=== PATIENT | male | born 1970 | race Caucasian/White ===

== ENCOUNTER 2019-01-03 07:26 | Emergency (ER) | payer OTHER ==
[2019-01-03 07:29] VITALS: TEMP 98.4; BMI 31.0
[2019-01-03] MEDS ORDERED: KETOROLAC TROMETHAMINE 30 MG/1 ML VIAL IVPUSH ONE (07:57)
[2019-01-03] MEDS ORDERED: KETOROLAC TROMETHAMINE 30 MG/1 ML VIAL ONE (08:00)
[2019-01-03 08:03] LABS: BASO % 0.1 % (0-2.0); EOS % 1.7 % (0-4.5); HEMATOCRIT 46.8 % (35.4-49); HEMOGLOBIN 16.1 GM/dl (11.7-16.9); LYMPH % 9.7 % (8-40); MCH 33.3 pg (25.7-33.7); MCHC 34.3 g/dl (32.0-35.9); MEAN CELL VOLUME 97.1 fl (80-96); MEAN PLT VOLUME 7.7 fl (7.5-11.1); MONO % 4.5 % (3.8-10.2); PLATELET COUNT 281 K/MM3 (134-434); RBC 4.82 M/mm3 (4.00-5.60); WHITE BLOOD COUNT 10.3 K/mm3 (4.0-10.8)
[2019-01-03 08:18] LABS: ALBUMIN 4.2 g/dl (3.4-5.0); ALK PHOS 70 U/L (45-117); ANION GAP 11 MMOL/L (8-16); BILIRUBIN,TOTAL 1.1 mg/dl (0.2-1); BLOOD UREA NITROGEN 15 mg/dl (7-18); CALCIUM 9.1 mg/dl (8.5-10); CHLORIDE 100 mmol/L (98-107); CO2 22 mmol/L (21-32); CREATININE 0.9 mg/dl (0.55-1.3); GLUCOSE,RANDOM 137 mg/dl (74-106); POTASSIUM 3.7 mmol/L (3.5-5.1); SGOT/AST 43 U/L (15-37); SGPT/ALT 57 U/L (13-61); SODIUM 133 mmol/L (136-145); TOT PROT 6.9 g/dl (6.4-8.2)
--- NOTE | 2019-01-03 08:40 | PDOC ---
History of Present Illness - General Chief Complaint: Pain, Acute Stated Complaint: RIGHT ABD PAIN Time Seen by Provider: 01/03/19 07:34 History Source: Patient Exam Limitations: No Limitations - History of Present Illness Initial Comments: 01/03/19 08:35 Healthy 48-year-old male with no significant past medical history presents with relatively acute onset of right lower quadrant/right pelvic pain this morning while driving to work, persistent for about 2 hours and began radiating to the groin and right flank he presents for evaluation. Pain is sharp, tender to 10 at peak, associated with nausea but no vomiting or diarrhea or constipation. Upon arrival here, the patient urinated dark urine and noted almost immediate improvement in his pain, still localized to the right pelvic region. Denies any testicular abnormality or pain, no fevers or chills. No history of kidney stones, denies any injury, no other complaints. No history of hernias or swellings, no rash. Past History - Past Medical History Allergies/Adverse Reactions: Allergies Allergy/AdvReac Type Severity Reaction Status Date / Time No Known Allergies Allergy Verified 01/03/19 07:26 Home Medications: Ambulatory Orders Oxycodone HCl/Acetaminophen [Percocet 5-325 mg Tablet] 1 - 2 tab PO TID PRN #14 tab MDD 6 tabs 01/03/19 Tamsulosin HCl [Flomax] 0.4 mg PO DAILY #7 cap.er.24h 01/03/19 COPD: No - Suicide/Smoking/Psychosocial Hx Smoking History: Former smoker Have you smoked in the past 12 months: Yes Information on smoking cessation initiated: Yes Hx Alcohol Use: Yes (OCASIONAL) Drug/Substance Use Hx: No Review of Systems - Review of Systems Constitutional: No: Chills, Fever Respiratory: No: Cough, Shortness of Breath Cardiac (ROS): No: Chest Pain ABD/GI: Yes: Nausea. No: Constipated, Diarrhea, Vomiting : Yes: See HPI, Flank Pain, Hematuria All Other Systems: Reviewed and Negative *Physical Exam - Vital Signs Last Vital Signs Temp Pulse Resp BP Pulse Ox 98.4 F 63 18 172/108 H 100 01/03/19 07:26 01/03/19 07:26 01/03/19 07:26 01/03/19 07:26 01/03/19 07:26 - Physical Exam Comments: 01/03/19 08:38 Blood pressure slightly elevated in the setting of pain, GENERAL: The patient is awake, alert, and fully oriented, in no acute distress. HEAD: Normal with no signs of trauma. EYES: PERRL, EOMI. No scleral jaundice. ENT: oropharynx clear. Moist mucous membranes. NECK: Normal range of motion, supple. LUNGS: Breath sounds equal, clear to auscultation bilaterally. HEART: Regular rate and rhythm, normal S1 and S2 without murmur. ABDOMEN: Soft/nontender/nondistended. BS wnl. Slight right CVA discomfort to palpation, No guarding or rebound. No palpable masses. No hepatosplenomegaly. : Normal circumcised penis, bilaterally descended testicles without swelling, bruising, tenderness, erythema EXTREMITIES: Normal range of motion, no edema. 2+ distal pulses. No cords, erythema, or tenderness. NEUROLOGICAL: Cranial nerves II through XII grossly intact. Normal speech, normal gait. PSYCH: Normal mood, normal affect. SKIN: Warm, Dry, no rashes or lesions noted. Moderate Sedation - Procedure Monitoring Vital Signs: Procedure Monitoring Vital Signs Temperature 98.4 F 01/03/19 07:26 Pulse Rate 63 01/03/19 07:26 Respiratory Rate 18 01/03/19 07:26 Blood Pressure 172/108 H 01/03/19 07:26 O2 Sat by Pulse Oximetry (%) 100 01/03/19 07:26 ED Treatment Course - LABORATORY CBC & Chemistry Diagram: 01/03/19 07:41 01/03/19 07:41 - ADDITIONAL ORDERS Additional order review: Laboratory Results 01/03/19 07:41 Sodium 133 L Potassium 3.7 Chloride 100 Carbon Dioxide 22 Anion Gap 11 BUN 15 Creatinine 0.9 Creat Clearance w eGFR 90.06 Random Glucose 137 H Calcium 9.1 Total Bilirubin 1.1 H AST 43 H ALT 57 Alkaline Phosphatase 70 Total Protein 6.9 Albumin 4.2 01/03/19 07:41 RBC 4.82 MCV 97.1 H MCHC 34.3 RDW 12.0 MPV 7.7 Neutrophils % 84.0 H Lymphocytes % 9.7 Monocytes % 4.5 Eosinophils % 1.7 Basophils % 0.1 - Medications Given in the ED: ED Medications Discontinued Medications Generic Name Dose Route Start Last Admin Trade Name Freq PRN Reason Stop Dose Admin Ketorolac Tromethamine 30 mg 01/03/19 07:57 01/03/19 08:02 Toradol Injection - IVPUSH 01/03/19 07:58 30 mg ONCE ONE Administration Medical Decision Making - Medical Decision Making 01/03/19 08:40 48-year-old male with no significant past medical history presents with acute onset of right groin pain and seemingly gross hematuria, mild CVA discomfort. Presentation seems most consistent with acute renal colic, first presentation. No evidence of torsion, abdominal exam is otherwise benign, no palpable hernias. Labs, urinalysis Pain control CT of the abdomen and pelvis Reassess 01/03/19 09:29 labs wnl, ua with blood but no infection ctap confirms 6mm R mid-ureteral stone with mild hydro. Pain has completely resolved, pt is comfortable in bed with clear urine. Abd benign. Discussed stone size/location with patient and risks of obstruction, strict return precautions. Since he feels better, will trial outpt management with prompt f/u and pain control. Understands return criteria. *DC/Admit/Observation/Transfer Diagnosis at time of Disposition: Right groin pain, Right ureteral stone - Discharge Dispostion Disposition: HOME Condition at time of disposition: Improved - Prescriptions Prescriptions: Oxycodone HCl/Acetaminophen [Percocet 5-325 mg Tablet] 1 - 2 tab PO TID PRN #14 tab MDD 6 tabs PRN Reason: Pain Tamsulosin HCl [Flomax] 0.4 mg PO DAILY #7 cap.er.24h - Referrals Referrals: Fidel Gaston [Primary Care Provider] - Antoine Crouch MD [Staff Physician] - Naveen Davenport MD [Staff Physician] - - Patient Instructions Printed Discharge Instructions: DI for Kidney Stones Additional Instructions: Activity as tolerated. Stay hydrated. As discussed, your symptoms are due to a 6mm kidney stone on the Right side. Ibuprofen 600 mg every 8 hours as needed for moderate pain, percocet as prescribed as needed for severe pain. Percocet may make you light-headed, so take proper precautions. Take Flomax as prescribed as it may help pass the stone. Use urine strainer as instructed. Continue your medications as previously prescribed by your physician. You should follow up with a urologist as soon as possible regarding today's emergency department visit. Consider calling Dr. Morrell or Dr. Davenport for an appointment. Return to the emergency department for any new or concerning symptoms, particularly persistent or worsening pain, difficulty urinating, fevers or chills, flank pain. - Post Discharge Activity
[2019-01-03 08:47] VITALS: BP 138/92; PULSE 81
[2019-01-03 09:10] LABS: URINE APPEARANCE SL CLOUDY; URINE BILIRUBIN 1+ (NEGATIVE); URINE COLOR YELLOW; URINE GLUCOSE (UA) NEGATIVE (NEGATIVE); URINE KETONE 1+ (NEGATIVE); URINE LEUK ESTERASE NEGATIVE (NEGATIVE); URINE NITRITE NEGATIVE (NEGATIVE); URINE PROTEIN 2+ (NEGATIVE)
[2019-01-03 09:11] LABS: URINE RBC 40-60 /hpf (0-3)
[2019-01-03 09:12] LABS: EPI CELLS 1+ /HPF; URINE BACTERIA FEW /hpf (NEGATIVE); URINE MUCUS 1+
== END 2019-01-03 10:01 | disposition home or self-care (01) ==
LOC: FER 07:26
PROC: 3E0333Z Introduction of Anti-inflammatory into Peripheral Vein, Percutaneous Approach (ICD-10-PCS; principal; 2019-01-03)
DX: R12 Heartburn (principal); Z09 Encounter for follow-up examination after completed treatment for conditions other than malignant neoplasm; N20.1 Calculus of ureter; Z87.442 Personal history of urinary calculi
CPT/HCPCS: 36415; 74176-TC; 80053; 81003; 81015; 85025; 99283-25